=== PATIENT | female | born 1975 | race Caucasian/White ===

== ENCOUNTER → 2016-12-23 09:24 | Emergency (ER) | payer MEDICAID ==
[2016-12-23 09:31] VITALS: BP 147/90
== END | disposition home or self-care (01) ==
LOC: ER 09:24
DX: I10 Essential (primary) hypertension (principal); Z88.6 Allergy status to analgesic agent

== ENCOUNTER 2023-12-17 18:38 | Emergency (ER) | payer SELFPAY ==
[~2023-12-17] VITALS: Ht 162.6 cm; Wt 94.5 kg
[2023-12-17 19:02] VITALS: BP 213/143; PULSE 106; RESP 18; O2SAT 96
[2023-12-17] MEDS: cloNIDine HCL 0.1 MG TAB ONE (19:11)
[2023-12-17] MEDS: cloNIDine HCL 0.1 MG TAB PO ONE (19:12)
[2023-12-17 19:43] LABS: Basophils # (auto) 0.1 10 ^3/uL (0-0.2); Basophils % (auto) 0.7 % (0.0-2.0); Eosinophils # (auto) 0.2 10 ^3/uL (0-0.8); Eosinophils % (auto) 1.6 % (0.0-7.0); Hematocrit 26.5 % (36.0-46.0); Hemoglobin 8.5 g/dL (12.2-16.2); Lymphocytes # (auto) 1.4 10 ^3/uL (0.4-5.4); Lymphocytes % (auto) 14.6 % (10.0-50.0); Mean Corpuscular Hemoglobin 27.8 pg (28.0-32.0); Mean Corpuscular Hgb Conc. 32.1 g/dL (32.0-36.0); Mean Corpuscular Volume 86.8 fL (80.0-100.0); Monocytes # (auto) 0.5 10 ^3/uL (0-1.3); Monocytes % (auto) 5.5 % (0.0-12.0); Neutrophils # (auto) 7.5 10 ^3/uL (1.6-8.6); Neutrophils % (auto) 77.6 % (37.0-80.0); Nucleated Red Blood Cells % 0.3 %; Platelet Count (auto) 343 10^3/uL (140-450); Red Blood Cells 3.06 10^6/uL (4.0-5.20); White Blood Cell 9.7 10^3/uL (4.4-10.8)
[2023-12-17 20:05] LABS: Alanine Aminotransferase 210 U/L (7-40); Albumin 3.9 g/dL (3.2-4.8); Alkaline Phosphatase 107 U/L (46-116); Anion Gap 11 (5-15); Aspartate Aminotransferase 143 U/L (13-40); BUN/Creatinine Ratio 20.2 (10.0-20.0); Bilirubin, Total 0.7 mg/dL (0.2-1.0); Blood Urea Nitrogen 49 mg/dL (9-23); Calcium 8.9 mg/dL (8.7-10.4); Carbon Dioxide 22 mmol/L (20-30); Chloride 104 mmol/L (98-107); Glucose 123 mg/dL (74-106); Potassium 3.8 mmol/L (3.5-5.1); Sodium 137 mmol/L (136-145)
[2023-12-17 20:06] LABS: Total Protein 6.8 g/dL (5.7-8.2)
== END 2023-12-17 20:33 | disposition left against medical advice (07) ==
LOC: ER 18:38
DX: I13.0 Hypertensive heart and chronic kidney disease with heart failure and stage 1 through stage 4 chronic kidney disease, or unspecified chronic kidney disease (principal); N18.9 Chronic kidney disease, unspecified; I50.89 Other heart failure; N17.9 Acute kidney failure, unspecified; J45.909 Unspecified asthma, uncomplicated; Z88.5 Allergy status to narcotic agent; Z91.040 Latex allergy status
CPT/HCPCS: 36415; 71045; 80053; 83880; 84484; 85025; 93005

== ENCOUNTER 2023-12-18 11:35 | Inpatient (IN) | payer MEDICAID, OTHER ==
[~2023-12-18] VITALS: Ht 162.6 cm; Wt 97.6 kg
[2023-12-18] MEDS: cloNIDine HCL 0.1 MG TAB PO ONE (12:05)
[2023-12-18 12:08] VITALS: PULSE 100; RESP 24; O2SAT 99
[2023-12-18 12:46] LABS: Eosinophils # (auto) 0 10 ^3/uL (0-0.8); Eosinophils % (auto) 0.5 % (0.0-7.0); Hemoglobin 8.4 g/dL (12.2-16.2); Lymphocytes # (auto) 1.3 10 ^3/uL (0.4-5.4); Monocytes # (auto) 0.7 10 ^3/uL (0-1.3)
[2023-12-18 12:47] LABS: Chloride 102 mmol/L (98-107); Potassium 3.8 mmol/L (3.5-5.1); Sodium 135 mmol/L (136-145)
[2023-12-18 12:48] LABS: Anion Gap 10 (5-15); Basophils # (auto) 0.1 10 ^3/uL (0-0.2); Basophils % (auto) 0.7 % (0.0-2.0); Calcium 9.2 mg/dL (8.7-10.4); Carbon Dioxide 23 mmol/L (20-30); Hematocrit 25.8 % (36.0-46.0); Mean Corpuscular Hemoglobin 27.8 pg (28.0-32.0); Mean Corpuscular Hgb Conc. 32.5 g/dL (32.0-36.0); Mean Corpuscular Volume 85.6 fL (80.0-100.0); Neutrophils # (auto) 7.2 10 ^3/uL (1.6-8.6); Neutrophils % (auto) 77.8 % (37.0-80.0); Nucleated Red Blood Cells % 0.5 %; Platelet Count (auto) 356 10^3/uL (140-450); Red Blood Cells 3.01 10^6/uL (4.0-5.20); Red Cell Distribution Width 18.1 % (11.8-14.3); White Blood Cell 9.3 10^3/uL (4.4-10.8)
[2023-12-18 12:53] LABS: Blood Urea Nitrogen 51 mg/dL (9-23); Glucose 113 mg/dL (74-106)
[2023-12-18 13:02] VITALS: O2SAT 97
[2023-12-18] MEDS: LABETALOL HCL 20 MG/4 ML VL IV ONE (13:42)
[2023-12-18] MEDS: FUROSEMIDE 40 MG/4 ML VIAL IV SCH (14:10)
[2023-12-18] MEDS: CARVEDILOL 3.125 MG TAB PO SCH (15:29)
[2023-12-18] MEDS ORDERED: HYDROmorphone HCL 2 MG/ML VL/or syr IV PRN (16:00)
[2023-12-18] MEDS ORDERED: DOCUSATE SOD 100 MG CAP PO PRN (16:00)
[2023-12-18] MEDS ORDERED: ACETAMINOPHEN 325 MG TAB PO PRN (16:00)
[2023-12-18] MEDS ORDERED: HYDROcodone-ACET 5/325MG TAB PO PRN (16:00)
[2023-12-18] MEDS: ONDANSETRON HCL 4 MG/2 ML VIAL IV PRN (18:27)
[2023-12-18 19:33] VITALS: PULSE 69; RESP 21; O2SAT 93
[2023-12-18 20:37] LABS: Creatinine, Urine 30.3 mg/dL (30.0-125.0); Urine Bacteria FEW /hpf (None Seen); Urine Blood Negative /uL (Negative); Urine Clarity Clear (Clear); Urine Color Light-Yellow (Yellow); Urine Mucus FEW (None Seen); Urine Protein, UAD 1+ (Negative); Urine Specific Gravity 1.008 (1.001-1.035); Urine Urobilinogen Normal (Negative); Urine WBC 12 /hpf (0 - 5); Urine pH 5.5 (5.0-9.0)
[2023-12-18 21:51] LABS: Protein, Urine 70.5 mg/dL (0.0-11.9)
[2023-12-18 21:54] LABS: Amphetamine Screen, Urine Pos (NEGATIVE); Barbiturate Scree,Urine Neg (NEGATIVE); Benzodiazephine Screen, Urine Neg (NEGATIVE); Cannabinoid Screen, Urine Neg (NEGATIVE); Cocaine Screen, Urine Neg (NEGATIVE); Creatinine, Urine 30.32 mg/dL (30.0-125.0); Opiate Scree,Urine Neg (NEGATIVE); Phencyclidine Screen, Urine Neg (NEGATIVE); Urine Protein/Creatinine Ratio 2.33
[2023-12-18] MEDS: SODIUM CHLOR 0.9% PF (SALINE LOCK) 10ML VIAL/SYR IV SCH (22:00)
[2023-12-18 22:17] LABS: % Iron Saturation 9.8 % (15-50)
[2023-12-19] VITALS (9 sets, daily range): BP systolic 107–186; BP diastolic 80–119; PULSE 70–96; RESP 16–20; TEMP 97.6–98.6; O2SAT 95–98
[2023-12-19 06:04] LABS: Basophils # (auto) 0.1 10 ^3/uL (0-0.2); Eosinophils # (auto) 0.2 10 ^3/uL (0-0.8); Eosinophils % (auto) 2.4 % (0.0-7.0); Hematocrit 25.7 % (36.0-46.0); Hemoglobin 8.3 g/dL (12.2-16.2); Lymphocytes # (auto) 1.7 10 ^3/uL (0.4-5.4); Lymphocytes % (auto) 18.3 % (10.0-50.0); Mean Corpuscular Hemoglobin 27.2 pg (28.0-32.0); Mean Corpuscular Hgb Conc. 32.3 g/dL (32.0-36.0); Mean Corpuscular Volume 84.2 fL (80.0-100.0); Monocytes # (auto) 0.7 10 ^3/uL (0-1.3); Monocytes % (auto) 8.1 % (0.0-12.0); Neutrophils # (auto) 6.4 10 ^3/uL (1.6-8.6); Neutrophils % (auto) 70.2 % (37.0-80.0); Nucleated Red Blood Cells % 0.2 %; Platelet Count (auto) 265 10^3/uL (140-450); Red Blood Cells 3.05 10^6/uL (4.0-5.20); Red Cell Distribution Width 18.7 % (11.8-14.3); White Blood Cell 9.1 10^3/uL (4.4-10.8)
[2023-12-19 06:29] LABS: Alanine Aminotransferase 322 U/L (7-40); Albumin 3.4 g/dL (3.2-4.8); Alkaline Phosphatase 93 U/L (46-116); Anion Gap 10 (5-15); Aspartate Aminotransferase 217 U/L (13-40); Calcium 8.8 mg/dL (8.7-10.4); Carbon Dioxide 23 mmol/L (20-30); Chloride 103 mmol/L (98-107); Potassium 3.3 mmol/L (3.5-5.1); Sodium 136 mmol/L (136-145)
[2023-12-19 06:30] LABS: BUN/Creatinine Ratio 20.1 (10.0-20.0); Blood Urea Nitrogen 50 mg/dL (9-23); Glucose 119 mg/dL (74-106); Magnesium 1.9 mg/dL (1.6-2.6)
[2023-12-19 06:32] LABS: Bilirubin, Total 0.5 mg/dL (0.2-1.0); Total Protein 6.3 g/dL (5.7-8.2)
[2023-12-19] MEDS: PANTOPRAZOLE 40 MG/10 ML VIAL INJ IV SCH (10:10)
[2023-12-19] MEDS: CALCIUM ACETATE 667 MG CAP PO SCH (12:00)
[2023-12-19] MEDS: FUROSEMIDE 20 MG TAB PO ONE (23:15)
[2023-12-20] VITALS (10 sets, daily range): BP systolic 150–197; BP diastolic 90–126; PULSE 76–84; RESP 16–19; TEMP 97.8–98.3; O2SAT 92–100
[2023-12-20 07:07] LABS: Basophils # (auto) 0 10 ^3/uL (0-0.2); Basophils % (auto) 0.6 % (0.0-2.0); Eosinophils # (auto) 0.2 10 ^3/uL (0-0.8); Lymphocytes # (auto) 1.4 10 ^3/uL (0.4-5.4); Monocytes # (auto) 0.5 10 ^3/uL (0-1.3)
[2023-12-20 07:10] LABS: Hematocrit 24.8 % (36.0-46.0); Lymphocytes % (auto) 17.9 % (10.0-50.0); Mean Corpuscular Hemoglobin 27.8 pg (28.0-32.0); Mean Corpuscular Hgb Conc. 32.4 g/dL (32.0-36.0); Mean Corpuscular Volume 85.9 fL (80.0-100.0); Monocytes % (auto) 6.8 % (0.0-12.0); Neutrophils # (auto) 5.5 10 ^3/uL (1.6-8.6); Neutrophils % (auto) 71.7 % (37.0-80.0); Nucleated Red Blood Cells % 0.1 %; Platelet Count (auto) 284 10^3/uL (140-450); Red Blood Cells 2.89 10^6/uL (4.0-5.20); Red Cell Distribution Width 18.6 % (11.8-14.3); White Blood Cell 7.7 10^3/uL (4.4-10.8)
[2023-12-20 07:14] LABS: Alanine Aminotransferase 238 U/L (7-40); Albumin 3.6 g/dL (3.2-4.8); Alkaline Phosphatase 98 U/L (46-116); Anion Gap 10 (5-15); Aspartate Aminotransferase 91 U/L (13-40); BUN/Creatinine Ratio 17.3 (10.0-20.0); Bilirubin, Total 0.4 mg/dL (0.2-1.0); Blood Urea Nitrogen 49 mg/dL (9-23); Calcium 8.4 mg/dL (8.7-10.4); Carbon Dioxide 26 mmol/L (20-30); Chloride 100 mmol/L (98-107); Glucose 119 mg/dL (74-106); Magnesium 1.8 mg/dL (1.6-2.6); Potassium 2.9 mmol/L (3.5-5.1); Sodium 136 mmol/L (136-145)
[2023-12-20 07:15] LABS: Total Protein 6.4 g/dL (5.7-8.2)
[2023-12-20 09:08] LABS: Hepatitis B Surface Antigen Negative (Negative)
[2023-12-20 09:30] LABS: Hepatitis C Antibody Negative (Negative)
[2023-12-20] MEDS: LABETALOL HCL 20 MG/4 ML VL IV PRN (12:40)
[2023-12-20] MEDS: IRON SUCROSE COMPLEX 100 ML IV SCH (14:16)
[2023-12-20] MEDS: POTASSIUM CHL 20 Meq TABLET PO SCH (14:18)
[2023-12-20] MEDS: amLODIPine BESYLATE 5 MG TAB PO SCH (14:24)
[2023-12-20] MEDS: hydrALAZINE HCL 25 MG TAB PO SCH (22:25)
[2023-12-21 01:00] VITALS: BP 161/91; PULSE 78; RESP 19; TEMP 98.2; O2SAT 92
[2023-12-21 05:00] VITALS: BP 170/107; PULSE 71; RESP 19; TEMP 97.9; O2SAT 99
[2023-12-21 07:31] LABS: Basophils # (auto) 0 10 ^3/uL (0-0.2); Basophils % (auto) 0.5 % (0.0-2.0); Eosinophils # (auto) 0.1 10 ^3/uL (0-0.8); Eosinophils % (auto) 1.7 % (0.0-7.0); Hemoglobin 8.6 g/dL (12.2-16.2); Lymphocytes % (auto) 13.1 % (10.0-50.0); Mean Corpuscular Hemoglobin 27.2 pg (28.0-32.0); Mean Corpuscular Hgb Conc. 31.7 g/dL (32.0-36.0); Mean Corpuscular Volume 85.8 fL (80.0-100.0); Monocytes # (auto) 0.6 10 ^3/uL (0-1.3); Monocytes % (auto) 8.3 % (0.0-12.0); Neutrophils # (auto) 5.7 10 ^3/uL (1.6-8.6); Neutrophils % (auto) 76.4 % (37.0-80.0); Nucleated Red Blood Cells % 0.2 %; Platelet Count (auto) 300 10^3/uL (140-450); Red Blood Cells 3.14 10^6/uL (4.0-5.20); Red Cell Distribution Width 18.5 % (11.8-14.3); White Blood Cell 7.4 10^3/uL (4.4-10.8)
[2023-12-21 07:51] LABS: Alanine Aminotransferase 195 U/L (7-40); Albumin 3.6 g/dL (3.2-4.8); Alkaline Phosphatase 88 U/L (46-116); Anion Gap 8 (5-15); Aspartate Aminotransferase 65 U/L (13-40); BUN/Creatinine Ratio 17.8 (10.0-20.0); Bilirubin, Total 0.5 mg/dL (0.2-1.0); Blood Urea Nitrogen 45 mg/dL (9-23); Calcium 8.7 mg/dL (8.7-10.4); Carbon Dioxide 29 mmol/L (20-30); Chloride 102 mmol/L (98-107); Glucose 94 mg/dL (74-106); Magnesium 1.8 mg/dL (1.6-2.6); Sodium 139 mmol/L (136-145); Total Protein 6.5 g/dL (5.7-8.2)
[2023-12-21 08:00] VITALS: PULSE 71
[2023-12-21 09:03] VITALS: BP 150/94; PULSE 68; RESP 17; TEMP 98.8; O2SAT 95
[2023-12-21] MEDS: ISOSORBIDE MONONITRATE ER 60 MG TAB PO SCH (09:49)
[2023-12-21] MEDS ORDERED: CALC10TA PO (11:27)
[2023-12-21] MEDS ORDERED: AMLO1TAB23 PO (11:27)
[2023-12-21] MEDS ORDERED: ISOS1TAB28 PO (11:27)
[2023-12-21] MEDS ORDERED: CARV6.2517 PO (11:27)
[2023-12-21] MEDS ORDERED: FURO1TAB31 PO (11:27)
[2023-12-21 12:03] VITALS: PULSE 68; TEMP 37.1
[2023-12-21 13:00] VITALS: BP 155/89; PULSE 69; RESP 19; TEMP 97.9; O2SAT 96
== END 2023-12-21 14:50 | disposition home or self-care (01) | DRG 194 ==
LOC: ER 11:35 → TELE 15:55 → TELE-WESTW 12-19 08:55 → WEST WING 12-21 02:10
PROVIDERS: ADMIT Internal Medicine; ATTEND Family Medicine
DX: I13.0 Hypertensive heart and chronic kidney disease with heart failure and stage 1 through stage 4 chronic kidney disease, or unspecified chronic kidney disease (principal); J96.01 Acute respiratory failure with hypoxia; N17.0 Acute kidney failure with tubular necrosis; I21.A1 Myocardial infarction type 2; I27.20 Pulmonary hypertension, unspecified; D63.1 Anemia in chronic kidney disease; E83.39 Other disorders of phosphorus metabolism; I42.0 Dilated cardiomyopathy; I16.1 Hypertensive emergency; E87.6 Hypokalemia; E66.9 Obesity, unspecified; I50.23 Acute on chronic systolic (congestive) heart failure; N18.4 Chronic kidney disease, stage 4 (severe); I07.1 Rheumatic tricuspid insufficiency; J45.909 Unspecified asthma, uncomplicated; F41.9 Anxiety disorder, unspecified; F17.210 Nicotine dependence, cigarettes, uncomplicated; F15.10 Other stimulant abuse, uncomplicated; Z88.5 Allergy status to narcotic agent; Z91.040 Latex allergy status; Z79.899 Other long term (current) drug therapy; Z68.36 Body mass index [BMI] 36.0-36.9, adult; Z91.148 Patient's other noncompliance with medication regimen for other reason
CPT/HCPCS: 36415; 71045; 76775; 80048; 80053; 80307; 81001; 82306; 82570; 82728; 83540; 83550; 83735; 83880; 83970; 84100; 84156; 84300; 84484; 85025; 85379; 86803; 87340; 93005; 93306; 99291; G0378; J1756; J2405; J2470

== ENCOUNTER 2024-07-05 00:46 | Emergency (ER) | payer MEDICAID ==
[~2024-07-05] VITALS: Ht 175.3 cm; Wt 108.9 kg
[~2024-07-05 00:46] MED LIST: AMLO1TAB23 PO; CALC10TA PO; CARV6.2517 PO; FURO1TAB31 PO; ISOS1TAB28 PO
[2024-07-05] MEDS: ETOMIDATE (2MG/ML) 20ML VIAL IV ONE (00:52)
[2024-07-05] MEDS: ROCURONIUM 10MG/ML 10ML VIAL IV ONE (00:52)
[2024-07-05] MEDS: IOHEXOL 350 MG/ML 100ML IJ ONE (00:57)
[2024-07-05] MEDS: LABETALOL HCL 20 MG/4 ML VL IV ONE ×2 (01:00→01:48)
--- NOTE | 2024-07-05 01:04 | ED.PDOC ---
History of Present Illness Time Seen by MD: 00:54 Primary Care Provider: none Allergies: Coded Allergies: Codeine (Verified Allergy, Unknown, 07/05/24) Latex (Verified Allergy, Unknown, 07/05/24) Home Meds Active Scripts Isosorbide Mononitrate (Isosorbide Mononitrate Er) 30 Mg Tab, 1 TAB PO DAILY, #90 TAB 1 Refill Prov:PANCHO LARSEN MD 12/21/23 Amlodipine Besylate (Amlodipine Besylate) 10 Mg Tab, 1 TAB PO DAILY, #90 TAB 1 Refill Prov:PANCHO LARSEN MD 12/21/23 Calcium Acetate (CALCIUM ACETATE) 667 Mg Tab, 667 MG PO TID, #270 TAB Prov:PANCHO LARSEN MD 12/21/23 Carvedilol (Coreg) 6.25 Mg Tab, 1 TAB PO BID, #180 TAB 1 Refill Prov:PANCHO LARSEN MD 12/21/23 Furosemide (Lasix) 40 Mg Tab, 40 MG PO DAILY, #90 TAB Prov:PANCHO LARSEN MD 12/21/23 Past Medical History PAST MEDICAL HISTORY: Asthma, HTN Surgical History: Denies all surgeries PARTS MANAGER History: No Pertinent PARTS MANAGER History Family History Family History: Unknown Social History Smoker: Non-Smoker Alcohol: Denies ETOH Use Drugs: Denies Drug Use Lives In: Home X-Ray, Labs, Meds, VS Vital Signs Date Time Temp Pulse Resp B/P (MAP) Pulse Ox O2 Delivery O2 Flow Rate FiO2 07/05/24 01:01 65 10 204/128 (153) 100 07/05/24 00:56 105 21 204/193 (197) 100 07/05/24 00:52 91 07/05/24 00:52 80 18 259/144 (182) 100 07/05/24 00:50 95.5 74 14 235/143 (173) 94 95.5 07/05/24 00:46 95.5 76 20 231/153 (179) 100 Lab Test 07/05/24 01:00 Range/Units White Blood Count 10.8 4.4-10.8 10^3/uL Red Blood Count 4.63 4.0-5.20 10^6/uL Hemoglobin 14.2 12.2-16.2 g/dL Hematocrit 41.3 36.0-46.0 % Mean Corpuscular Volume 89.0 80.0-100.0 fL Mean Corpuscular Hemoglobin 30.5 28.0-32.0 pg Mean Corpuscular Hemoglobin Concent 34.3 32.0-36.0 g/dL Red Cell Distribution Width 14.1 11.8-14.3 % Platelet Count 242 140-450 10^3/uL Mean Platelet Volume 8.7 6.9-10.8 fL Neutrophils (%) (Auto) 67.7 37.0-80.0 % Lymphocytes (%) (Auto) 24.7 10.0-50.0 % Monocytes (%) (Auto) 4.9 0.0-12.0 % Eosinophils (%) (Auto) 2.1 0.0-7.0 % Basophils (%) (Auto) 0.6 0.0-2.0 % Neutrophils # (Auto) 7.3 1.6-8.6 10 ^3/uL Lymphocytes # (Auto) 2.7 0.4-5.4 10 ^3/uL Monocytes # (Auto) 0.5 0-1.3 10 ^3/uL Eosinophils # (Auto) 0.2 0-0.8 10 ^3/uL Basophils # (Auto) 0.1 0-0.2 10 ^3/uL Nucleated Red Blood Cells 0.0 % Prothrombin Time Pending Prothrombin Time INR Pending Sodium Level Pending Potassium Level Pending Chloride Level Pending Carbon Dioxide Level Pending Anion Gap Pending Blood Urea Nitrogen Pending Creatinine Pending Glomerular Filtration Rate Calc Pending BUN/Creatinine Ratio Pending Serum Glucose Pending Lactic Acid Level Pending Calcium Level Pending Magnesium Level Pending Total Bilirubin Pending Aspartate Amino Transferase (AST) Pending Alanine Aminotransferase (ALT) Pending Alkaline Phosphatase Pending Total Protein Pending Albumin Pending Thyroid Stimulating Hormone (TSH) Pending Plasma/Serum Blood Alcohol Pending Departure 1 Departure Time of Disposition: 01:02 Disposition: 02 SHORT TERM HOSPITAL Comments 48-year-old female arrived to the emergency department via EMS after family r eports patient had a headache, has syncopal episode at home. Patient arrived with a GCS of 3, not protecting her airway, status post emesis. She was intubated on arrival for airway protection, sent to CT for suspected CVA.. Blood pressure elevated I personally scribed for MCKENNA DENNY MD ([email or web address]) on 07/05/24 at 01:45. Electronically submitted by Fernando De Luna ([email or web address]). MCKENNA DENNY MD Jul 05, 2024 01:04
--- NOTE | 2024-07-05 01:09 | ED.PDOC ---
History of Present Illness HPI Comments 48-year-old female, presents to the emergency department via EMS after syncopal episode followed by unresponsiveness. Per EMS report, bystanders called after witnessing the patient having a sudden syncopal episode and falling onto her left side from a standing position 30x minutes earlier, this evening. Family reports patient was complaining of a 10/10 headache prior to syncopal episode. On scene, EMS notes on patient being found unresponsive, with exception to painful stimuli, with pinpoint pupils and snoring respirations along with an initial rhythm of sinus, a SpO2 of 94%RA, a blood pressure of 231/153, and a blood glucose of 94. En route, patient was given 2x does of 2mg of Narcan (4mg total), with patient respirations beginning to decline after initial dose in addition to having multiple vomiting episodes. Upon arrival to ED, care was resumed by ED staff. Further history cannot be obtained at this time, due to patient's current condition and absence of family/welding machine operator helper gas historians. [facility], patient has a history of asthma, CHF, dilated cardiomyopathy with an ejection fraction of 15% on echocardiogram in November of 2023, chronic kidney disease, pulmonary HTN, NSTEMI, obesity, tricuspid regurgitation, and methamphetamine abuse. She was seen at this facility in November 2023 with admission for CHF exacerbation and hypertensive emergency. At that time she was noted to be noncompliant with her medications. Time Seen by MD: 00:45 Primary Care Provider: none Reviewed Notes: Nurses Notes, Emergency Planning And Response Manager Notes, Medications, Allergies Allergies: Coded Allergies: Codeine (Verified Allergy, Unknown, 07/05/24) Latex (Verified Allergy, Unknown, 07/05/24) Home Meds Active Scripts Isosorbide Mononitrate (Isosorbide Mononitrate Er) 30 Mg Tab, 1 TAB PO DAILY, #90 TAB 1 Refill Prov:PANCHO LARSEN MD 12/21/23 Amlodipine Besylate (Amlodipine Besylate) 10 Mg Tab, 1 TAB PO DAILY, #90 TAB 1 Refill Prov:PANHCO LARSEN MD 12/21/23 Calcium Acetate (CALCIUM ACETATE) 667 Mg Tab, 667 MG PO TID, #270 TAB Prov:PANCHO LARSEN MD 12/21/23 Carvedilol (Coreg) 6.25 Mg Tab, 1 TAB PO BID, #180 TAB 1 Refill Prov:PANCHO LARSEN MD 12/21/23 Furosemide (Lasix) 40 Mg Tab, 40 MG PO DAILY, #90 TAB Prov:PANCHO LARSEN MD 12/21/23 Information Source: Emergency Med Personnel Mode of Arrival: EMS Severity: Moderate Timing: Minutes Duration: Since onset Review of Systems: REVIEW OF SYSTEMS: No fever, no chills, or fatigue HEENT: No sore throat, no earache, no congestion, no neck pain. Cardiac: No chest pain. No palpitations. Lungs: No shortness of breath, no cough. GI: No nausea, no vomiting, no diarrhea, no constipation, no abdominal pain : No dysuria, frequency, or urgency. No hematuria. Musculoskeletal: No joint pain , no joint swelling, no extremity edema. Skin: No rash, no itching. Neuro: ALOC. No headache, no dizziness, no weakness Vital Signs Vital Signs Date Time Temp Pulse Resp B/P (MAP) Pulse Ox O2 Delivery O2 Flow Rate FiO2 07/05/24 03:10 151/72 07/05/24 02:58 76 20 100 Mechanical Ventilator+ 30 30 07/05/24 00:50 95.5 95.5 Physical Exam General: Unresponsive Skin: Skin is cool to touch, appropriate color for ethnicity. HEENT: The head is normocephalic and atraumatic. Conjunctivae are clear without exudates or hemorrhage. Sclera is non-icteric. Anisocoria noted. Eyelids are normal in appearance without swelling or lesions. Neck: The neck is supple Cardiac: Heart rate and rhythm are normal. No murmurs, gallops, or rubs are auscultated. Respiratory: Shallow, spontaneous respirations noted. We will sounds clear bilaterally. Abdominal: Abdomen is soft, without distention. Bowel sounds active in 4 quadrants. Extremities: Upper and lower extremities are atraumatic in appearance without deformity or edema. Neurological: Patient is unresponsive with a GCS of 6. Psychiatric: Appropriate mood and affect. Good judgement and insight. No visual or auditory hallucinations. Past Medical History PAST MEDICAL HISTORY: Asthma, CHF (15% EF ), CKF, HTN (pulmonary ), [place] (STEMI) Past Medical History (Other): dilated cardiomyopathy, tricuspid regurgitation Surgical History: Denies all surgeries LANDSCAPE CREW LEADER History: No Pertinent LANDSCAPE CREW LEADER History Family History Family History: Unknown Social History Smoker: Non-Smoker Alcohol: Denies ETOH Use Drugs: Methamphetamine Lives In: Home Was a procedure done? Was a procedure done?: Yes Sedation Sedation?: No Intubation Indication: Altered Mental Status Prep: Preoxygenation Pretreated with: Other ( etomidate) Medicated with: Other (80 mg of rocuronium) Intubation Approach: Orotracheal (8.0) Intubation size: cm Informed consent obtained: No Risks/benefits/alt described: No EKG EKG : Pulse Rate (adult): 91 Cardiac Rhythm: NSR Comments ST depressions in V5-V6, T-wave inversions in 1, AVl, and lead 2, non-specific ST changes, no STEMI, QTC is 504 Differential Dx Considerations may include: toxic encephalopathy, TIA, CVA, intracranial bleed, substance overdose, hypoxia, other traumatic injury, acute coronary syndrome, pulmonary embolism X-Ray, Labs, Meds, VS Vital Signs Date Time Temp Pulse Resp B/P (MAP) Pulse Ox O2 Delivery O2 Flow Rate FiO2 07/05/24 03:10 151/72 07/05/24 03:09 161/86 07/05/24 02:58 76 20 100 Mechanical Ventilator+ 30 30 07/05/24 02:02 70 286/184 07/05/24 01:53 91 07/05/24 01:44 70 07/05/24 01:01 65 10 204/128 (153) 100 07/05/24 01:00 70 286/184 07/05/24 00:56 105 21 204/193 (197) 100 07/05/24 00:52 91 07/05/24 00:52 259/104 07/05/24 00:52 80 18 259/144 (182) 100 07/05/24 00:50 95.5 74 14 235/143 (173) 94 95.5 07/05/24 00:46 95.5 76 20 231/153 (179) 100 Lab Test 07/05/24 02:00 07/05/24 01:35 07/05/24 01:00 Range/Units Blood Gas Specimen Type Arterial Blood Gas Sample Site Left radial Blood Gas Patient Temperature 37.0 Arterial Blood Date Drawn [id number] Arterial Blood pH 7.219 *L 7.350-7.450 Arterial Blood Partial Pressure CO2 54.3 H 32.0-45.0 mmHg Arterial Blood Partial Pressure O2 108.2 H 83.0-108.0 mmHg Arterial Blood HCO3 21.7 21.0-28.0 mmol/L Arterial Blood Oxygen Saturation 96.9 94.0-98.0 % Arterial Blood Base Excess -6.5 L -2.0-3.0 mmol/L Arterial Blood Oxyhemoglobin 94.1 94.0-98.0 % Arterial Blood Carboxyhemoglobin 2.5 H 0.5-1.5 % Arterial Blood Methemoglobin 0.4 0.0-1.5 % Chris Test Modified Blood Gas Total Hemoglobin 13.50 12.0-16.0 g/dL Blood Gas Set Respiration Rate 16.0 Blood Gas Modality Vent - ac FiO2 % 40.0 Blood Gas Tidal Volume 450.0 Blood Gas PEEP or CPAP 5.0 Blood Gas Critical Value Read Back Yes Blood Gas Notified Whom arlen Gonzalez md Blood Gas Notified Time [id number] Blood Gas Notified By Urine Color Light-yellow Yellow Urine Clarity Clear Clear Urine pH 6.0 5.0-9.0 Urine Specific [place] 1.018 1.001-1.035 Urine Protein 2+ H Negative Urine Ketones Negative Negative Urine Blood 1+ H Negative /uL Urine Nitrite Negative Negative Urine Bilirubin Negative Negative Urine Urobilinogen Normal Negative mg/dL Urine Leukocyte Esterase Trace Negative /uL Urine RBC 11 0 - 4 /hpf Urine Microscopic WBC 17 H 0-5 /HPF Urine Squamous Epithelial Cells Few <5 /hpf Urine Bacteria None seen None Seen /hpf Urine Glucose 1+ H Normal mg/dL Urine Opiates Screen Pending Urine Fentanyl Screen Pending Urine Barbiturates Screen Pending Urine Phencyclidine Screen Pending Urine Amphetamines Screen Pending Urine Benzodiazepines Screen Pending Urine Cocaine Screen Pending Urine Cannabinoids Screen Pending White Blood Count 10.8 4.4-10.8 10^3/uL Red Blood Count 4.63 4.0-5.20 10^6/uL Hemoglobin 14.2 12.2-16.2 g/dL Hematocrit 41.3 36.0-46.0 % Mean Corpuscular Volume 89.0 80.0-100.0 fL Mean Corpuscular Hemoglobin 30.5 28.0-32.0 pg Mean Corpuscular Hemoglobin Concent 34.3 32.0-36.0 g/dL Red Cell Distribution Width 14.1 11.8-14.3 % Platelet Count 242 140-450 10^3/uL Mean Platelet Volume 8.7 6.9-10.8 fL Neutrophils (%) (Auto) 67.7 37.0-80.0 % Lymphocytes (%) (Auto) 24.7 10.0-50.0 % Monocytes (%) (Auto) 4.9 0.0-12.0 % Eosinophils (%) (Auto) 2.1 0.0-7.0 % Basophils (%) (Auto) 0.6 0.0-2.0 % Neutrophils # (Auto) 7.3 1.6-8.6 10 ^3/uL Lymphocytes # (Auto) 2.7 0.4-5.4 10 ^3/uL Monocytes # (Auto) 0.5 0-1.3 10 ^3/uL Eosinophils # (Auto) 0.2 0-0.8 10 ^3/uL Basophils # (Auto) 0.1 0-0.2 10 ^3/uL Nucleated Red Blood Cells 0.0 % Prothrombin Time 10.0 9.3-11.8 sec Prothrombin Time INR 0.94 0.9-1.15 Sodium Level 138 136-145 mmol/L Potassium Level 3.8 3.5-5.1 mmol/L Chloride Level 107 98-107 mmol/L Carbon Dioxide Level 19 L 20-31 mmol/L Anion Gap 12 5-15 Blood Urea Nitrogen 32 H 9-23 mg/dL Creatinine 2.17 H 0.550-1.02 mg/dL Glomerular Filtration Rate Calc 28 >90 mL/min BUN/Creatinine Ratio 14.7 10.0-20.0 Serum Glucose 153 H 74-106 mg/dL Lactic Acid Level 1.3 0.4-2.0 mmol/L Calcium Level 9.4 8.7-10.4 mg/dL Magnesium Level 2.4 1.6-2.6 mg/dL Total Bilirubin 0.3 0.2-1.0 mg/dL Aspartate Amino Transferase (AST) 22 13-40 U/L Alanine Aminotransferase (ALT) 18 7-40 U/L Alkaline Phosphatase 82 46-116 U/L Total Protein 8.3 H 5.7-8.2 g/dL Albumin 4.9 H 3.2-4.8 g/dL Thyroid Stimulating Hormone (TSH) 2.28 0.55-4.78 uIU/mL Plasma/Serum Blood Alcohol < 3.0 <10 mg/dL Current Medications Medications (Trade) Dose Ordered Sig/Az Route Start Time Stop Time Status Last Admin Labetalol HCl (Labetalol HCl) 20 mg ONCE ONCE IV 07/05/24 01:00 07/05/24 01:01 DC 07/05/24 01:00 Levetiracetam 100 ml @ 400 mls/hr ONCE ONCE IV 07/05/24 02:00 07/05/24 02:14 DC 07/05/24 01:49 Nicardipine HCl 250 ml @ 50 mls/hr Q5H IV 07/05/24 02:00 07/05/24 02:02 Propofol 100 ml @ 3.266 mls/ hr Q24H IV 07/05/24 03:00 07/05/24 03:20 DC 07/05/24 03:09 Propofol 100 ml @ 3.266 mls/ hr Q24H IV 07/05/24 03:15 07/05/24 03:10 Etomidate 20 mg ONCE ONCE IV 07/05/24 03:30 07/05/24 03:31 DC 07/05/24 00:52 Rocuronium [place] 80 mg ONCE ONCE IV 07/05/24 03:30 07/05/24 03:31 DC 07/05/24 00:52 [place] [address] Ph: [phone] DIAGNOSTIC IMAGING Diagnostic Imaging Report : [id number] Signed PATIENT: AMINATA POLANCO ACCT: [id number] UNIT: [id number] : 1975 LOC: ER ROOM / BED: / AGE / SEX: 48 / F ADM STATUS: REG ER SERVICE [id number] ORDERING PHYSICIAN: MCKENNA GONZALEZ MD PROCEDURE(s): CXR1 - CHEST XRAY 1 VIEW REASON: intubation ORDER NUMBER(s): [id number], ACCESSION NUMBER(s): [id number] CHEST RADIOGRAPH Indication: intubation Technique: Single frontal view of the chest was obtained Comparison: XY CHEST XRAY 1 VIEW on DOS: 12/18/23, XY CHEST XRAY 1 VIEW on DOS: 12/17/23 Findings/ IMPRESSION: Endotracheal tube appears in proper position. Low lung volumes with bronchovascular crowding. No pleural effusion. No pneumothorax ATED BY: ARAM MARINELLI DO DICTATED DATE/TIME: 07/05/24121 SIGNED BY: ARAM MARINELLI DO SIGNED DATE/TIME: 07/05/24121 CC: timestamp: [address] Virk at [facility] ED, who agreed to accept the patient [place] [address] Ph: [phone] DIAGNOSTIC IMAGING Diagnostic Imaging Report : [id number] Signed PATIENT: AMINATA POLANCO ACCT: [id number] UNIT: [id number] : 1975 LOC: ER ROOM / BED: / AGE / SEX: 48 / F ADM STATUS: REG ER SERVICE ORDERING PHYSICIAN: MCKENNA GONZALEZ MD PROCEDURE(s): HWOCT - HEAD WITHOUT CONTRAST REASON: SYNCOPAL EPISODE, ELEVATED B/P ORDER NUMBER(s): [id number], ACCESSION NUMBER(s): [id number] CT HEAD WITHOUT CONTRAST INDICATION: SYNCOPAL EPISODE, ELEVATED B/P COMPARISON: None TECHNIQUE: CT of the head without intravenous contrast. RADIATION DOSE: CTDIvol: 63.01 mGy, DLP: 1013.83 mGy*cm FINDINGS: There is acute hemorrhage centered in the right basal ganglia and thalamus measuring up to approximately 4 cm with inferior extension into the right midbrain. There is associated vasogenic edema and mass effect with approximately 5 mm leftward midline shift and diffuse sulcal effacement. There is interventricular extension of hemorrhage into the third, lateral, and fourth ventricles and [id number] hydrocephalus with particular enlargement of the temporal and occipital horns of the lateral ventricles. There is periventricular hypodensity consistent with mild transependymal edema has as well as edema in bilateral cerebellum. Visualized paranasal sinuses and mastoid air cells are clear. Soft tissues and osseous structures are unremarkable. IMPRESSION: Large acute parenchymal hemorrhage measuring approximately 4 cm centered in right basal ganglia/thalamus with interventricular extension and associated mass effect as described above. ATED BY: SHER YODER MD DICTATED DATE/TIME: 07/05/24145 SIGNED BY: SHER YODER MD SIGNED DATE/TIME: 07/05/24145 CC: Images Reviewed?: Images reviewed and evaluated by me Time of 1ST Reevaluation: 01:15 Reevaluation 1ST: Unchanged Patient Education/Counseling: Pt Unresponsive Family Education/Counseling: No Family Present Departure 1 Departure Time of Disposition: 02:00 Impression: Primary Impression: Cerebral parenchymal hemorrhage Additional Impressions: Intubation of airway performed without difficulty Hypertensive crisis Renal failure Disposition: 02 SHORT TERM HOSPITAL Condition: Critical Comments 48-year-old female arrived to the emergency department via EMS after family reports patient had a headache, has syncopal episode at home. Patient arrived with a GCS of 3, not protecting her airway, status post emesis. She was intubated on arrival for airway protection, sent to CT which showed a large right intraventricular hemorrhage. Patient is started on labetalol and nicardipine for blood pressure control. Discussed with Dr. Virk at [facility] who accepts patient for transfer for neurosurgery services. Extensive evaluation was performed in attempt to identify or rule out: (See differential diagnosis section) The following tests were ordered, and results were reviewed by me: (See diagnostic results section) The following test were independently interpreted by me: EKG, CT head-large parenchymal/intraventricular hemorrhage, chest x-ray I reviewed and agreed with the following test results read by other providers: CT head, chest x-ray I reviewed the following notes from the pt's past medical encounters: [November 2023 encounter for CHF exacerbation and HTN emergency] Additional information was gathered from interviewing the following independent historians: EMS personnel Discussion of management or test interpretation with external physician/other qualified health acute care registered nurse: Dr. Virk at [facility] Addressed an acute or chronic illness that poses a threat to life or bodily function: Unresponsiveness with airway compromise, acute intracranial hemorrhage, hypertensive crisis Decision regarding hospitalization or escalation of hospital level of care: Risk and benefits of admission for further treatment of patient's condition was considered. Due to patient's current clinical condition, high risk of decline and poor outcome if discharged and need for further inpatient management and monitoring, patient will be admitted to the hospital. Drug therapy requiring intensive monitoring for toxicity: IV Keppra, IV labetalol, IV nicardipine, IV etomidate, IV rocuronium, IV propofol, Parenteral controlled substances: N/A Decision regarding elective major surgery with identified patient or procedure risk factors: N/A Decision regarding emergency major surgery: N/A Decision not to resuscitate or to de-escalate care because of poor prognosis: N/A Diagnosis or treatment significantly limited by social determinants of health: N/A Critical Care Note Critical Care Time?: Yes (45 min-critical care time only) Critical care comment: Due to a high probability of clinically significant, life threatening deterioration, the patient required my highest level of preparedness to intervene emergently and I personally spent this critical care time directly and personally managing the patient. This critical care time included obtaining a history; examining the patient; pulse oximetry; ordering and review of studies; arranging urgent treatment with development of a management plan; evaluation of patient's response to treatment; frequent reassessment; and, discussions with other providers. This critical care time was performed to assess and manage the high probability of imminent, life-threatening deterioration that could result in multi-organ failure. It was exclusive of separately billable procedures and treating other patients and teaching time. Please see my other sections and the rest of the note for further information on patient assessment and treatment. Stability Stability form required: No Heart Score Heart Score: Heart Score Response (Comments) Value History N/A 0 EKG N/A 0 Age N/A 0 Risk Factors N/A 0 Troponin N/A 0 Total 0 I personally scribed for MCKENNA GONZALEZ MD ([email or web address]) on 07/05/24 at 01:09. Electronically submitted by Fernando De Luna ([email or web address]). I personally scribed for MCKENNA GONZALEZ MD ([email or web address]) on 07/05/24 at 01:53. Electronically submitted by Fernando De Luna ([email or web address]). MCKENNA GONZALEZ MD Jul 05, 2024 01:09
--- NOTE | 2024-07-05 01:25 | DVH ---
CHEST RADIOGRAPH Indication: intubation Technique: Single frontal view of the chest was obtained Comparison: XY CHEST XRAY 1 VIEW on DOS: 12/18/23, XY CHEST XRAY 1 VIEW on DOS: 12/17/23 Findings/ IMPRESSION: Endotracheal tube appears in proper position. Low lung volumes with bronchovascular crowding. No ple ural effusion. No pneumothorax
[2024-07-05 01:27] LABS: Basophils # (auto) 0.1 10 ^3/uL (0-0.2); Basophils % (auto) 0.6 % (0.0-2.0); Eosinophils # (auto) 0.2 10 ^3/uL (0-0.8); Eosinophils % (auto) 2.1 % (0.0-7.0); Hematocrit 41.3 % (36.0-46.0); Hemoglobin 14.2 g/dL (12.2-16.2); Lymphocytes # (auto) 2.7 10 ^3/uL (0.4-5.4); Lymphocytes % (auto) 24.7 % (10.0-50.0); Mean Corpuscular Hemoglobin 30.5 pg (28.0-32.0); Mean Corpuscular Hgb Conc. 34.3 g/dL (32.0-36.0); Monocytes # (auto) 0.5 10 ^3/uL (0-1.3); Monocytes % (auto) 4.9 % (0.0-12.0); Neutrophils # (auto) 7.3 10 ^3/uL (1.6-8.6); Neutrophils % (auto) 67.7 % (37.0-80.0); Platelet Count (auto) 242 10^3/uL (140-450); Red Blood Cells 4.63 10^6/uL (4.0-5.20); Red Cell Distribution Width 14.1 % (11.8-14.3); White Blood Cell 10.8 10^3/uL (4.4-10.8)
[2024-07-05] MEDS ORDERED: levETIRAcetam 1000 mg/100ml 100 ML IV ONE (01:30)
[2024-07-05 01:41] LABS: INR 0.94 (0.9-1.15)
[2024-07-05 01:46] LABS: Magnesium 2.4 mg/dL (1.6-2.6)
[2024-07-05 01:47] LABS: Alanine Aminotransferase 18 U/L (7-40); Alkaline Phosphatase 82 U/L (46-116); Anion Gap 12 (5-15); Aspartate Aminotransferase 22 U/L (13-40); BUN/Creatinine Ratio 14.7 (10.0-20.0); Calcium 9.4 mg/dL (8.7-10.4); Potassium 3.8 mmol/L (3.5-5.1); Sodium 138 mmol/L (136-145)
--- NOTE | 2024-07-05 01:48 | DVH ---
CT HEAD WITHOUT CONTRAST INDICATION: SYNCOPAL EPISODE, ELEVATED B/P COMPARISON: None TECHNIQUE: CT of the head without intravenous contrast. RADIATION DOSE: CTDIvol: 63.01 mGy, DLP: 1013.83 mGy*cm FINDINGS: There is acute hemorrhage centered in the right basal ganglia and thalamus measuring up to approximat sesar 4 cm with inferior extension into the right midbrain. There is associated vasogenic edema and mas s effect with approximately 5 mm leftward midline shift and diffuse sulcal effacement. There is inter ventricular extension of hemorrhage into the third, lateral, and fourth ventricles and tjkf-[id number] te hydrocephalus with particular enlargement of the temporal and occipital horns of the lateral ventr icles. There is periventricular hypodensity consistent with mild transependymal edema has as well as edema in bilateral cerebellum. Visualized paranasal sinuses and mastoid air cells are clear. Soft tissues and osseous structures are unremarkable. IMPRESSION: Large acute parenchymal hemorrhage measuring approximately 4 cm centered in right basal ganglia/thal amus with interventricular extension and associated mass effect as described above.
[2024-07-05] MEDS: levETIRAcetam 1000 mg/100ml 100 ML IV ONE (01:49)
[2024-07-05 01:54] LABS: Blood Alcohol < 3.0 mg/dL (<10)
[2024-07-05 01:56] LABS: Albumin 4.9 g/dL (3.2-4.8); Bilirubin, Total 0.3 mg/dL (0.2-1.0); Blood Urea Nitrogen 32 mg/dL (9-23); Carbon Dioxide 19 mmol/L (20-31); Chloride 107 mmol/L (98-107); Glucose 153 mg/dL (74-106); Total Protein 8.3 g/dL (5.7-8.2)
[2024-07-05 02:01] LABS: Urine Bacteria None Seen /hpf (None Seen)
[2024-07-05 02:24] LABS: Urine Blood 1+ /uL (Negative); Urine Clarity Clear (Clear); Urine Color Light-Yellow (Yellow); Urine Protein, UAD 2+ (Negative); Urine Specific Gravity 1.018 (1.001-1.035); Urine Squamous Epithelial Cell FEW /hpf (<5); Urine Urobilinogen Normal (Negative); Urine WBC 17 /HPF (0-5)
[2024-07-05 02:30] LABS: Base Excess -6.5 mmol/L (-2.0-3.0)
[2024-07-05 02:33] LABS: Amphetamine Screen, Urine Pos (NEGATIVE); Barbiturate Scree,Urine Neg (NEGATIVE); Benzodiazephine Screen, Urine Neg (NEGATIVE); Cannabinoid Screen, Urine Neg (NEGATIVE); Cocaine Screen, Urine Neg (NEGATIVE); Opiate Scree,Urine Neg (NEGATIVE); Phencyclidine Screen, Urine Neg (NEGATIVE)
[2024-07-05 02:58] VITALS: PULSE 76; RESP 20; O2SAT 100
[2024-07-05] MEDS: PROPOFOL 100 ML IV SCH ×2 (03:09→03:10)
[2024-07-05] MEDS ORDERED: MIDAZOLAM DRIP 50 mg/50mL 50 ML IV SCH (03:30)
[2024-07-05 03:42] VITALS: BP 166/99; PULSE 59; RESP 20; TEMP 94; O2SAT 98
--- NOTE | 2024-07-05 06:41 | ECG ---
[facility] Test Date: 2024-07-05 Test Time: 01:44:17 Pat Name: AMINATA POLANCO Department: ED Room: Gender: F Bilingual Patient Support Caseworker: ISELA : 1975 Requested By: MCKENNA DENNY Order Number: [id number] Reading MD: Keagan Stone Measurements Intervals [place] Rate: 70 P: 66 PA: 153 QRS: -14 QRSD: 115 T: 181 QT: 485 QTc: 524 Interpretive Statements Sinus rhythm Biatrial enlargement LVH with IVCD and secondary repol abnrm Prolonged QT interval Electronically Signed On 07-08-2024 18:52:42 PDT by Keagan Stone Please click the below link to view image of tracing.
--- NOTE | 2024-07-05 11:03 | ECG ---
[facility] Test Date: 2024-07-05 Test Time: 00:52:50 Pat Name: AMINATA POLANCO Department: ed Room: Gender: F Postpartum Nurse: kevin : 1975 Requested By: MCKENNA DENNY Order Number: [id number] Reading MD: Keagan Stone Measurements Intervals [place] Rate: 91 P: 69 MD: 159 QRS: -2 QRSD: 113 T: 185 QT: 410 QTc: 505 Interpretive Statements Sinus rhythm Biatrial enlargement Abnormal R-wave progression, late transition LVH with IVCD and secondary repol abnrm Borderline prolonged QT interval Electronically Signed On 07-08-2024 18:52:04 PDT by Keagan Stone Please click the below link to view image of tracing.
== END 2024-07-05 04:01 | disposition short-term general hospital (02) ==
LOC: EDBD 00:46 → ER 00:46
DX: I61.8 Other nontraumatic intracerebral hemorrhage (principal); I16.9 Hypertensive crisis, unspecified; I13.0 Hypertensive heart and chronic kidney disease with heart failure and stage 1 through stage 4 chronic kidney disease, or unspecified chronic kidney disease; I50.9 Heart failure, unspecified; N18.9 Chronic kidney disease, unspecified; J45.909 Unspecified asthma, uncomplicated; I25.2 Old myocardial infarction; Z79.899 Other long term (current) drug therapy; Z88.5 Allergy status to narcotic agent
CPT/HCPCS: 31500; 36415; 36600; 70450; 71045; 80053; 80307; 80320; 81001; 82805; 83605; 83735; 84443; 85025; 85610; 93005; 96374; 99291; J1953; J2704; Q9967